=== PATIENT | male | born 1990 | race Caucasian/White ===

== ENCOUNTER → 2020-01-15 | Outpatient (REF) | payer OTHER | LOC: M LAB REF 16:27 | PROVIDERS: ATTEND Internal Medicine | DX: R68.82 Decreased libido (principal) ==

== ENCOUNTER 2020-09-14 18:22 | Emergency (ER) | payer OTHER ==
[~2020-09-14] VITALS: Ht 180.3 cm; Wt 104.7 kg
[2020-09-14] MEDS ORDERED: AMPH1CAP16 PO (18:30)
[2020-09-14] MEDS ORDERED: DULC5TAB PO (18:30)
[2020-09-14] MEDS ORDERED: PEPT262T2 PO (18:30)
[2020-09-14] MEDS ORDERED: METOCLOPRAMIDE INJ 10MG/2ML VIAL (J2765 PER 1) IV ONE (19:15)
[2020-09-14] MEDS ORDERED: NS 1,000 ML IV ONE (19:15)
[2020-09-14 20:06] LABS: BASO % 0.3 % (0.0-1.0); EOS # 0.2 10^3/uL (0.0-0.5); EOS % 1.8 % (0.0-3.0); HEMATOCRIT 45.1 % (42.0-52.0); HEMOGLOBIN 14.4 g/dl (13.5-17.5); LYMPH # 2.3 10^3/uL (1.5-5.0); LYMPH % 19.3 % (24.0-44.0); MEAN CORPUSCULAR HEMOGLOBIN 29.1 pg (27.0-33.0); MEAN CORPUSCULAR HGB CONC 31.9 g/dl (32.0-36.5); MEAN CORPUSCULAR VOLUME 91.3 fl (80.0-96.0); MONO # 1.1 10^3/uL (0.0-0.8); MONO % 9.1 % (0.0-5.0); NEUTROPHILS # 8.2 10^3/uL (1.5-8.5); NEUTROPHILS % 69.2 % (36.0-66.0); PLATELET COUNT, AUTOMATED 292 10^3/uL (150-450); RED BLOOD COUNT 4.94 10^6/uL (4.30-6.10); WHITE BLOOD COUNT 11.9 10^3/uL (4.0-10.0)
[2020-09-14 20:27] LABS: ALT/SGPT 30 U/L (12-78); BILIRUBIN,DIRECT 0.2 MG/DL (0.0-0.2); BILIRUBIN,TOTAL 1.1 MG/DL (0.2-1.0); CK-MB VALUE MASS < 1.0 NG/ML (<3.6); CPK CREATINE PHOSPHOKINASE 133 U/L (39-308); LIPASE 78 U/L (73-393); MB/CK RELATIVE INDEX 0.75 (< OR =4); TOTAL PROTEIN 7.5 GM/DL (6.4-8.2); TROPONIN I < 0.02 NG/ML (< 0.10)
[2020-09-14] MEDS ORDERED: ISOVUE-370 76% 100ML VIAL As Ordered ONE (20:35)
--- NOTE | 2020-09-14 21:36 | REPVR ---
PROCEDURE INFORMATION: Exam: CT Abdomen And Pelvis With Contrast Exam date and time: 09/14/2020 8:47 PM Age: 30 years old Clinical indication: Abdominal pain; Generalized; Additional info: Abdominal pain; R/O diverticulitis TECHNIQUE: Imaging protocol: Computed tomography of the abdomen and pelvis with intravenous contrast. Radiation optimization: All CT scans at this facility use at least one of these dose optimization techniques: automated exposure control; mA and/or kV adjustment per patient size (includes targeted exams where dose is matched to clinical indication); or iterative reconstruction. Contrast material: ISOVUE 370; Contrast volume: 100 ml; Contrast route: INTRAVENOUS (IV); COMPARISON: No relevant prior studies available. FINDINGS: Liver: Normal. No mass. Gallbladder and bile ducts: Normal. No calcified stones. No ductal dilation. Pancreas: Normal. No ductal dilation. Spleen: Normal. No splenomegaly. Adrenal glands: Normal. No mass. Kidneys and ureters: Normal. No hydronephrosis. Stomach and bowel: Sigmoid colonic wall thickening with pericolonic fat stranding. Appendix: No evidence of appendicitis. Intraperitoneal space: Unremarkable. No free air. No significant fluid collection. Vasculature: Unremarkable. No abdominal aortic aneurysm. Lymph nodes: Unremarkable. No enlarged lymph nodes. Urinary bladder: Unremarkable as visualized. Reproductive: Unremarkable as visualized. Bones/joints: Unremarkable. No acute fracture. Soft tissues: Unremarkable. Other findings: No fluid collections. IMPRESSION: Acute diverticulitis of the sigmoid colon. No fluid collections/abscess. Electronically signed by: Jf Phillips On 09/14/2020 21:36:17 PM
[2020-09-14] MEDS ORDERED: NORCO, ANEXSIA 5/325MG TABLET (HYDROcodone/ACETAMINOPHEN) PO ONE (21:45)
[2020-09-14] MEDS ORDERED: metroNIDAZOLE (FLAGYL) 500MG TABLET PO ONE (21:45)
[2020-09-14] MEDS ORDERED: ONDANSETRON 4 MG ORAL DISINTEGRATING TAB PO ONE (21:45)
[2020-09-14] MEDS ORDERED: CIPROFLOXACIN 500MG TABLET PO ONE (21:45)
[2020-09-14] MEDS ORDERED: CIPR-249 PO (21:46)
[2020-09-14] MEDS ORDERED: ONDA4TAB6 PO (21:46)
[2020-09-14] MEDS ORDERED: FLAG500T PO (21:46)
[2020-09-14] MEDS ORDERED: NORC1TAB7 PO (21:46)
[2020-09-14 22:00] VITALS: BP 115/56
--- NOTE | 2020-09-15 05:41 | ECGEPIP ---
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
== END 2020-09-14 22:25 | disposition home or self-care (01) ==
LOC: M ED 18:22
DX: K57.32 Diverticulitis of large intestine without perforation or abscess without bleeding (principal)
CPT/HCPCS: 74177; 80047; 80076; 81001; 82550; 82553; 83605; 83690; 84484; 85025; 93005; 93041; 96361; 96374; 99285; J2765; Q0162; Q9967

== ENCOUNTER → 2021-01-22 | Outpatient (REF) | payer OTHER ==
[~2021-01-22] MED LIST: AMPH1CAP16 PO; CIPR-249 PO; DULC5TAB PO; FLAG500T PO; NORC1TAB7 PO; ONDA4TAB6 PO; PEPT262T2 PO
== END ==
LOC: M LAB REF 13:58
PROVIDERS: ATTEND Nurse Practitioner Critical Care Medicine
DX: R19.7 Diarrhea, unspecified (principal)

== ENCOUNTER → 2021-06-18 | Outpatient (REF) | payer OTHER | LOC: M LAB REF 21:13 | PROVIDERS: ATTEND Physician Assistant | DX: R50.9 Fever, unspecified (principal) ==

== ENCOUNTER 2021-08-14 14:35 | Inpatient (IN) | payer OTHER ==
[~2021-08-14] VITALS: Ht 180.3 cm; Wt 106.3 kg
[2021-08-14] MEDS ORDERED: NS 1,000 ML IV SCH (14:45)
[2021-08-14] MEDS ORDERED: ONDANSETRON 4MG/2ML VIAL IV ONE (14:55)
[2021-08-14] MEDS ORDERED: MORPHINE 4 MG/ML 1ML VIAL/SYRINGE (J2270) IV PRN (14:55)
[2021-08-14] MEDS ORDERED: ISOVUE-370 76% 100ML VIAL As Ordered ONE (15:23)
[2021-08-14 15:24] LABS: BASO % 0.1 % (0.0-1.0); EOS % 0.1 % (0.0-3.0); HEMATOCRIT 39.9 % (42.0-52.0); HEMOGLOBIN 13.5 g/dl (13.5-17.5); LYMPH # 0.7 10^3/uL (1.5-5.0); LYMPH % 4.8 % (24.0-44.0); MEAN CORPUSCULAR HEMOGLOBIN 30.2 pg (27.0-33.0); MEAN CORPUSCULAR HGB CONC 33.8 g/dl (32.0-36.5); MEAN CORPUSCULAR VOLUME 89.3 fl (80.0-96.0); MONO # 0.8 10^3/uL (0.0-0.8); MONO % 5.1 % (2.0-8.0); NEUTROPHILS # 13.3 10^3/uL (1.5-8.5); NEUTROPHILS % 89.2 % (36.0-66.0); PLATELET COUNT, AUTOMATED 272 10^3/uL (150-450); RED BLOOD COUNT 4.47 10^6/uL (4.30-6.10); WHITE BLOOD COUNT 14.9 10^3/uL (4.0-10.0)
--- NOTE | 2021-08-14 15:43 | REP ---
INDICATION: abd pain. COMPARISON: None TECHNIQUE: Axial contrast-enhanced images from the lung bases to the pubic symphysis using 100 cc Isovue 370 intravenous contrast material. Coronal and sagittal reformations obtained. This CT examination was performed using the following dose reduction techniques: Automated exposure control, adjustment of mA and/or kv according to the patient's size, and the use of iterative reconstruction technique. FINDINGS: Mucosal thickening involving multiple loops of small and large bowel and primarily involving the sigmoid colon along with fat stranding and small amount of free fluid within the pelvis most suggestive of an acute enterocolitis/sigmoiditis. No bowel obstruction. No free air to suggest perforation. No drainable collection/abscess. Liver, spleen, pancreas, gallbladder, bilateral adrenal glands and kidneys are normal. Pelvis demonstrates relatively normal bladder and age-appropriate prostate/seminal vesicles. No significant intraperitoneal or retroperitoneal adenopathy. Abdominal aorta without aneurysm or dissection. Musculoskeletal structures without acute osseous abnormality lung bases are clear. IMPRESSION: Findings most compatible with enterocolitis/sigmoiditis <Electronically signed by Saad Torrez > 08/14/21 1158
[2021-08-14 15:48] LABS: CK-MB VALUE MASS < 1.0 NG/ML (<3.6); CPK CREATINE PHOSPHOKINASE 91 U/L (39-308); TROPONIN I < 0.02 NG/ML (< 0.10)
[2021-08-14 15:49] LABS: ALBUMIN 3.7 GM/DL (3.2-5.2); BILIRUBIN,DIRECT 0.4 MG/DL (0.0-0.2); BILIRUBIN,TOTAL 1.8 MG/DL (0.2-1.0); TOTAL PROTEIN 7.3 GM/DL (6.4-8.2)
[2021-08-14] MEDS ORDERED: PIPERACILLIN/TAZOBACTAM SOD 3.375 GM in D5W MINI-BAG PLUS 50 ML IV ONE (16:00)
[2021-08-14] MEDS ORDERED: SILD50TA PO (16:32)
[2021-08-14] MEDS ORDERED: HOME MED LIST COMPLETE! XX SCH (16:35)
[2021-08-14 16:36] LABS: RSV AMPLIFICATION NEGATIVE (NEGATIVE)
[2021-08-14] MEDS ORDERED: MOM 30ML SUSPENSION UDC PO PRN (17:20)
[2021-08-14] MEDS ORDERED: MAALOX 30 ML SUSP *UDC PO PRN (17:20)
--- NOTE | 2021-08-14 17:32 | HPEPDOC ---
[facility] Medical History & Physical Date of Admission Aug 14, 2021 Date of Service: Aug 14, 2021 Attending Physician: JOANNA SERNA MD History and Physical CHIEF COMPLAINT: Abdominal pain HISTORY OF PRESENT ILLNESS: Patient is a 31-year-old male with a history of sudden onset abdominal pain beginning 9:51 AM 08/13/2021. Patient said it started with cramps and sharp pain. It progressed from there and became flares of constant sharp pain. He was only able to sleep a few hours overnight by sleeping on the right side. Eventually the pain got so bad that it did not matter what side he laid on. This morning he said the pain was worse and the severe cramping still continued. He states the pain is worse with movement, coughing, straining, twisting motions. He has tried milk of magnesia and colonoscopy bowel prep in an attempt to relieve what he thought may be a possible obstruction. He does have a history of diverticulosis and has had similar pain before. Of note he had his wisdom teeth removed this Wednesday and was prescribed antibiotics and most likely hydrocodone for pain control. The last time he ate (scallops, torri, rare meat) was before his wisdom teeth surgery PAST MEDICAL HISTORY: 1. Diverticulitis in September 2020 2. Asthma 3. ADD PAST SURGICAL HISTORY: 1. [place] teeth removed 08/13/2021. 2. She repaired dislocated kneecap in 2003. SOCIAL HISTORY: Marital status: Engaged. 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 Hereditary Diseases: Unknown ALLERGIES: Please see below. REVIEW OF SYSTEMS: CONSTITUTIONAL: Reports fever chills, diaphoresis. Cardiac: Denies chest pain, tachycardia Respiratory: Denies shortness of breath, coughing GASTROINTESTINAL: Reports nausea, watery diarrhea (15-20 episodes yesterday, 4-5 today), denies hematochezia, denies vomiting. GENITOURINARY: Some difficulty urinating (thinks he is dehydrated), some hematuria (allegedly); denies dysuria, pyuria. HOME MEDICATIONS: Please see below. PHYSICAL EXAMINATION: VITAL SIGNS: See below GENERAL APPEARANCE: 31-year-old male, sitting in stretcher, in mild to moderate distress due to abdominal pain. HEENT: Head normocephalic/atraumatic. CARDIOVASCULAR: Regular rate and rhythm, no murmurs, rubs, or gallops. LUNGS: Clear to auscultation bilaterally, no wheezes, crackles, rhonchi. ABDOMEN: Normoactive bowel sounds; tender to palpation throughout, especially in right upper and left lower quadrants, guarding throughout with minimal palpat ion; negative Rovsing sign. EXTREMITIES: 2+ radial and 2+ dorsalis pedis pulses. LABORATORY DATA: See below. IMAGING: FINDINGS: Mucosal thickening involving multiple loops of small and large bowel and primarily involving the sigmoid colon along with fat stranding and small amount of free fluid within the pelvis most suggestive of an acute enterocolitis/sigmoiditis. No bowel obstruction. No free air to suggest perforation. No drainable collection/abscess. Liver, spleen, pancreas, gallbladder, bilateral adrenal glands and kidneys are normal. Pelvis demonstrates relatively normal bladder and age-appropriate prostate/seminal vesicles. No significant intraperitoneal or retroperitoneal adenopathy. Abdominal aorta without aneurysm or dissection. Musculoskeletal structures without acute osseous abnormality lung bases are clear. IMPRESSION: Findings most compatible with enterocolitis/sigmoiditis MICROBIOLOGY: Please see below. ASSESSMENT: Patient is a 31-year-old male, in mild to moderate stress due to abdominal pain likely from diverticulitis. Patient had a flare of diverticulitis last September. He presented to the ED today after severe sharp and stabbing abdominal pain that began yesterday. PLAN: 1. Abdominal pain - likely 2/2 Diverticulitis / Sigmoiditis - Clinically reports abdominal pain - Remains hemodynamically stable - Will start Antibiotics Zosyn 3.375 mg for intra-abdominal coverage -Pain control: Tylenol 650 mg every 4 hours for mild to moderate pain; morphine 2 mg every 4 hours for moderate pain; -Ondansetron for nausea -Fluids: Normal saline 120 mls/hr - Will check lactic acid / blood cultures - Clear liquid diet only at this time Reported hematuria - Will check UA 2. Asthma - No evidence of exacerbation -Uses an albuterol inhaler for rescue but has not used it in some time -Continue with home inhalers 3. ADHD -Adderall 20 mg, has not taken it since the weekend - Will hold for now 4. DVT prophylaxis -Teds and sequentials CODE STATUS: Full code Vital Signs Vital Signs Date Time Temp Pulse Resp B/P (MAP) Pulse Ox O2 Delivery O2 Flow Rate FiO2 08/14/21 16:05 92 99 08/14/21 16:00 18 131/61 (84) Room Air 08/14/21 14:35 98.7 Laboratory Data Labs 24H Laboratory Tests 2 08/14/21 14:44: Immature Granulocyte % (Auto) 0.7, Neutrophils (%) (Auto) 89.2H, Lymphocytes (%) (Auto) 4.8L, Monocytes (%) (Auto) 5.1, Eosinophils (%) (Auto) 0.1, Basophils (%) (Auto) 0.1, Neutrophils # (Auto) 13.3H, Lymphocytes # (Auto) 0.7L, Monocytes # (Auto) 0.8, Eosinophils # (Auto) 0.0, Basophils # (Auto) 0.0, Nucleated Red Blood Cells % (auto) 0.0 08/14/21 15:01: POC Glucose (Misc Panel) 114H, POC Sodium (Misc Panel) 135L, POC Potassium (Misc Panel) 3.7, POC Chloride (Misc Panel) 98, POC Total CO2 (Misc Panel) 26.0, POC Blood Urea Nitrogen (Misc Panel 10, POC Ionized Calcium (Misc Panel) 4.9, POC Creatinine (Misc Panel) 1.1, POC Hematocrit (Misc Panel) 41.0 08/14/21 15:02: Total Creatine Kinase 91, Creatine Kinase MB < 1.0, Creatine Kinase MB Relative Index 1.10, Troponin I < 0.02 08/14/21 15:09: Total Bilirubin 1.8H, Direct Bilirubin 0.4H, Aspartate Amino Transf (AST/SGOT) 19, Alanine Aminotransferase (ALT/SGPT) 44, Alkaline Phosphatase 55, Total Protein 7.3, Albumin 3.7, Albumin/Globulin Ratio 1.0, Lipase 48L, Coronavirus (COVID-19)(PCR) NEGATIVE, Influenza Type A (RT-PCR) NEGATIVE, Influenza Type B (RT-PCR) NEGATIVE, Respiratory Syncytial Virus (PCR) NEGATIVE CBC/BMP Laboratory Tests 08/14/21 14:44 Home Medications Scheduled Dextroamphetamine/Amphetamine (Dextroamp-Amphet ER 20 mg Cap) 20 Mg Cap.er.24h, 20 MG PO BID TAKES MORNING AND AFTERNOON, SOMETIMES ONLY ONCE IN THE MORNING PER PT Scheduled PRN Sildenafil Citrate (Viagra) 50 Mg Tablet, 50 MG PO ASDIRECTED PRN for ERECTILE DYSFUNCTION 1 hour before sexual activity Allergies Coded Allergies: No Known Allergies (Unverified , 09/14/20) A-FIB/CHADSVASC A-FIB History Current/History of A-Fib/PAF?: No GME ATTESTATION GME ATTESTATION My faculty preceptor for this patient encounter was physically present during the encounter and was fully available. All aspects of the patient interview, examination, medical decision making process, and medical care plan development were reviewed and approved by the faculty preceptor. The faculty preceptor is aware and concurs with the plan as stated in the body of this note and will attest to such by his/her cosignature. ATTENDING NOTE I, Joanna Serna, have independently examined this patient and performed my own physical exam, as well as reviewed the documentation and edited where necessary with the resident. For medical students we have performed the physical exam together and discussed medical decision making and I have verified the history. I have discussed in detail with the resident / student the findings and plan of treatment as documented by the resident / student and edited their note. I agree with their findings and treatment plan and have edited their documentation. I will continue to follow the patient during this hospital stay. Tramaine Patel DO Aug 14, 2021 17:32 JOANNA SERNA MD Aug 15, 2021 14:41
[2021-08-14] MEDS: NS 1,000 ML IV SCH ×2 (17:40→21:45)
[2021-08-14] MEDS: MORPHINE 2 MG/ML 1ML VIAL (J2270) IV PRN ×2 (18:07→23:12)
[2021-08-14] MEDS: ONDANSETRON 4MG/2ML VIAL IV PRN (18:08)
[2021-08-14] MEDS ORDERED: KETOROLAC 30 MG/ML 1ML VIAL IV ONE (18:50)
--- NOTE | 2021-08-14 19:51 | ECGEPIP ---
[facility] - ED Test Date: 2021-08-14 Pat Name: MIGUEL SNEED Department: Room: - Gender: Male Time Study Clerk: : 1990 Requested By: Susan Chávez Order Number: [id number] Reading MD: Alexsander Troy Measurements Intervals [place] Rate: 85 P: 63 UT: 162 QRS: 62 QRSD: 108 T: 37 QT: 340 QTc: 404 Interpretive Statements Normal sinus rhythm MODERATE INTRAVENTRICULAR CONDUCTION DELAY Nonspecific T wave abnormality SIMILAR TO 09/14/20 Electronically Signed on 08-14-2021 19:51:44 EDT by Alexsander Troy
[2021-08-14] MEDS ORDERED: DOCUSATE SODIUM 100MG CAPSULE PO SCH (21:00)
[2021-08-14 22:00] VITALS: BP 133/71
[2021-08-14] MEDS: PIPERACILLIN/TAZOBACTAM SOD 3.375 GM in D5W MINI-BAG PLUS 50 ML IV SCH (23:11)
[2021-08-15] VITALS (9 sets, daily range): BP systolic 100–129; BP diastolic 55–70
[2021-08-15] MEDS: ACETAMINOPHEN TAB 650MG DOSE (2X325MG) PO PRN ×2 (02:41→10:58)
[2021-08-15] MEDS: MORPHINE 2 MG/ML 1ML VIAL (J2270) IV PRN ×2 (03:16→08:36)
[2021-08-15] MEDS ORDERED: MORPHINE 2 MG/ML 1ML VIAL (J2270) IV ONE (03:35)
[2021-08-15] MEDS: PIPERACILLIN/TAZOBACTAM SOD 3.375 GM in D5W MINI-BAG PLUS 50 ML IV SCH ×3 (04:46→20:50)
[2021-08-15] MEDS ORDERED: PREPARATION H OINTMENT (HEMORRHOID) PR PRN (05:40)
[2021-08-15] MEDS ORDERED: KETOROLAC 30 MG/ML 1ML VIAL IV ONE (05:40)
[2021-08-15 07:13] LABS: BASO % 0.1 % (0.0-1.0); EOS % 0.4 % (0.0-3.0); HEMATOCRIT 35.8 % (42.0-52.0); LYMPH # 1.3 10^3/uL (1.5-5.0); LYMPH % 11.5 % (24.0-44.0); MEAN CORPUSCULAR HEMOGLOBIN 30.5 pg (27.0-33.0); MEAN CORPUSCULAR HGB CONC 33.5 g/dl (32.0-36.5); MEAN CORPUSCULAR VOLUME 91.1 fl (80.0-96.0); MONO # 0.8 10^3/uL (0.0-0.8); MONO % 7.4 % (2.0-8.0); PLATELET COUNT, AUTOMATED 235 10^3/uL (150-450); RED BLOOD COUNT 3.93 10^6/uL (4.30-6.10); WHITE BLOOD COUNT 11.3 10^3/uL (4.0-10.0)
[2021-08-15 08:02] LABS: ALBUMIN 2.8 GM/DL (3.2-5.2); ALT/SGPT 33 U/L (12-78); BILIRUBIN,TOTAL 1.6 MG/DL (0.2-1.0); BLOOD UREA NITROGEN 12 MG/DL (7-18); CALCIUM LEVEL 8.6 MG/DL (8.5-10.1); CARBON DIOXIDE LEVEL 27 MEQ/L (21-32); CHLORIDE LEVEL 104 MEQ/L (98-107); CREATININE FOR GFR 1.23 MG/DL (0.70-1.30); GLOMERULAR FILTRATION RATE > 60.0 (>60); GLUCOSE, FASTING 98 MG/DL (70-100); MAGNESIUM LEVEL 2.1 MG/DL (1.8-2.4); POTASSIUM SERUM 3.8 MEQ/L (3.5-5.1); SODIUM LEVEL 135 MEQ/L (136-145); TOTAL PROTEIN 6.2 GM/DL (6.4-8.2)
[2021-08-15] MEDS: NS 1,000 ML IV SCH ×3 (10:58→23:36)
[2021-08-15] MEDS ORDERED: MORPHINE 4 MG/ML 1ML VIAL/SYRINGE (J2270) IV PRN ×2 (11:00→18:05)
[2021-08-15] MEDS ORDERED: NS 1,000 ML IV ONE (11:20)
--- NOTE | 2021-08-15 11:44 | REP ---
INDICATION: Abdominal pain COMPARISON: 08/14/2021 TECHNIQUE: Axial noncontrast images from the lung bases to the pubic symphysis with coronal and sagittal reformations. This CT examination was performed using the following dose reduction techniques: Automated exposure control, adjustment of mA and/or kv according to the patient's size, and use of iterative reconstruction technique. FINDINGS: Comparison is made with most recent prior examination which demonstrated enterocolitis and suspected sigmoiditis. The current examination now demonstrates contained free air within the deep pelvis adjacent to the mid sigmoid colon with small amounts of associated fluid collections most compatible with acute ruptured sigmoiditis. The small gas/fluid collections within the deep pelvis measure approximately 2.1 and 3.9 cm maximal diameter each (series 201; images 121-138) and may not be amenable to interventional drainage. There is no evidence for associated bowel obstruction and no further free air identified. Liver, spleen, pancreas, gallbladder, bilateral adrenal glands and kidneys are normal for noncontrast evaluation. Further evaluation of the pelvis demonstrates normal bladder and prostate/seminal vesicles. Abdominal aorta without aneurysm. Musculoskeletal structures intact. Lung bases demonstrate mild atelectasis. IMPRESSION: 1. Previously identified enterocolitis/sigmoiditis now demonstrates contained perforation in the pelvis adjacent to the mid sigmoid colon with small foci of gas/fluid. No evidence for bowel obstruction and no further free air within the peritoneal cavity is identified. <Electronically signed by Saad Torrez > 08/15/21 0864
[2021-08-15] MEDS: ONDANSETRON 4MG/2ML VIAL IV PRN (12:57)
[2021-08-15] MEDS ORDERED: ROCURONIUM BROMIDE 50 MG/5 ML VIAL As Ordered ONE ×3 (13:12→15:51)
[2021-08-15] MEDS ORDERED: fentaNYL 100 MCG/2 ML INJECTION (J3010) As Ordered ONE (13:13)
[2021-08-15] MEDS ORDERED: LIDOCAINE 2% INJ 100 MG/5 ML SYRINGE As Ordered ONE (13:13)
[2021-08-15] MEDS ORDERED: propofoL 200 MG/20 ML VIAL As Ordered ONE (13:13)
[2021-08-15] MEDS ORDERED: SUCCINYLCHOLINE 100 MG/5 ML SYRINGE (J0330) As Ordered ONE (13:13)
[2021-08-15] MEDS ORDERED: MIDAZOLAM INJ 2MG/2ML VIAL (J2250 PER 1MG) As Ordered ONE (13:13)
--- NOTE | 2021-08-15 13:32 | CR.PDOC ---
General Surgery Consultation Date of Consultation 08/15/21 History and Physical CONSULT REPORT FOR: Hospitalist service (Dr. Garcia) REASON FOR CONSULTATION: Perforated diverticulitis HISTORY OF PRESENT ILLNESS: I was asked to emergently see Mr. Hardin who is a 31-year-old gentleman admitted yesterday after presenting to the emergency room with a few hours history of sudden onset of lower abdominal pain that he reports as crampy they are becoming sharp starting over the left lower abdomen radiating to the mid suprapubic and right lower quadrant area also he is reporting rectal pressure discomfort. He did have a few loose stools nonbloody stools yesterday. He continues to report intermittent flatus. In the emergency room he was evaluated and noted to may have enterocolitis, sigmoiditis. There were no free perforation or collections on that CT study. He had a white cell count of 14.9. He was admitted to the hospital service started on IV Zosyn. He initially somewhat stabilized overnight but early this morning felt worse, was reporting more pain and discomfort and was noted to be febrile at 101.5. He was being suspected to be septic from this. A repeat CT abdomen pelvis was done showing what looks like a contained perforation at the level of the sigmoid colon with an air-fluid level collection on the left lateral pelvic sidewall that the radiologist feels is not amenable to percutaneous drainage. Thus I was asked to evaluate the patient for potential surgery. He tells me that he had one episode of diverticulitis back in September 2020. He was treated with antibiotics with improvement and resolution of his symptoms. [facility] [place] he had a colonoscopy done January 2021 and was told. That the diverticulosis was not too bad and was advised high fiber diet. He was doing well up until this episode. Patient denies any significant personal or family history for inflammatory bowel disease, colorectal malignancy. Reports normally regular soft formed stools about 2 or 3 times in the morning after coffee. He just had his wisdom tooth taken out last Wednesday and for which she was taking some narcotics which caused him to be constipated. PAST MEDICAL HISTORY: 1. Diverticulitis in September 2020 2. Asthma 3. ADD PAST SURGICAL HISTORY: 1. [place] teeth removed 08/13/2021. 2. She repaired dislocated kneecap in 2003. SOCIAL HISTORY: Marital status: Engaged. 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 Hereditary Diseases: Unknown PREVIOUS ANESTHESIA REACTIONS: He has had a previous general anesthesia for repair of his dislocated kneecap without any untoward reaction. ALLERGIES: Please see below. HOME MEDICATIONS: Please see below. REVIEW OF SYSTEMS: Patient reports he was in his usual state of health prior to the start of his symptoms yesterday morning. Denies any unexplained weight loss. He has been having cold sweats, fever overnight. Denies cough or colds. Denies travel or exposure to any sick persons. Denies any chest pain, shortness of breath limiting his activity. Denies any chronic abdominal pains. Denies any dysuria hematuria nocturia. He reports some pressure like discomfort in his rectum. Otherwise he has been healthy and lives an active lifestyle. PHYSICAL EXAMINATION: Patient is laying flat in bed appears moderately uncomfortable him in the room. Skin is cool and moist, mild diaphoresis. Overall looks to be baseline healthy consistent with his chronologic age. Lips appear moist and not terribly dehydrated. No obvious jugular venous distention. Lung sounds are clear to auscultation bilaterally anteriorly with no wheezing. Pulse rate is in the 80s and regular. Heart rate and rhythm are regular. Abdomen is relatively flat does not look to be terribly distended. No obvious signs of umbilical or groin herniation. No prior surgical scars. Minimally uncomfortable on palpation on the upper abdomen. Moderately tender over the lower abdomen including the left lower abdomen, suprapubic area and right lower abdomen. Most tender over the suprapubic and left lower abdominal area with moderate guarding on palpation. No obvious extremity defects, deformities. No extremity edema. ANCILLARIES: WBC on admission is 14.9. Repeat this morning is 11.3. CRP yesterday is 21 point 4 repeat today is 21.5. Initial albumin at 3.7. LABORATORY DATA: Please see below. IMAGING STUDIES: He had a CT abdomen pelvis with IV contrast done yesterday on presentation to the emergency department. He had a repeat noncontrast CT abdomen and pelvis done earlier today. I reviewed both images as well as the prior images on a CT scan abdomen pelvis done September 2020 on his initial presentation for diverticulitis. He had interval development of a contained perforation at the level of the sigmoid colon with an air-fluid level/gas/fluid collection deep in the pelvis at the lateral wall. Radiologist measured this is 2.9 by 3.9 cm and does not think it is amenable to interventional drainage. Thickened sigmoid colon as well as nearby small bowel. No other signs of free perforation. No other signs of abscess. No signs of bowel obstruction. IMPRESSION AND PLAN: Perforated sigmoid diverticulitis Patient looks to have an evolving process which started yesterday morning and now has proceeded to a contained perforation of the sigmoid colon despite being started on IV antibiotics on his presentation. He looks moderately uncomfortable. He is exhibiting signs and symptoms of sepsis, localized peritonitis on examination mostly in the lower abdomen. I advised him of the results of the CT. Ideally would try to get percutaneous drainage but the radi ologist does not think that the collection is amenable to drainage. Advised him of the need to go to the operating room. I suggest we start with diagnostic laparoscopy and if we can locate and drain the abscess we will do so. If there is no gross signs of necrosis or large defects on the sigmoid colon, we will stop with the drainage and washout and observe him for improvement and resolution of the sepsis. This is mostly successful about 60 to 70% of the time. If he has a large defect on his colon, fecal peritonitis, I advised him that he will need resection and most likely a temporary colostomy to get him through this episode and would need subsequent reversal of the colostomy once he has recovered from this usually in the space of about 3 to 6 months. He has had a prior colonoscopy this year for evaluation of a previous episode of diverticulitis back in September 2020 so most likely were not dealing with malignancy. I answered all his questions and he is consented to proceed. We will make arrangements to get him to the operating room urgently. Vital Signs Vital Signs Date Time Temp Pulse Resp B/P (MAP) Pulse Ox O2 Delivery O2 Flow Rate FiO2 08/15/21 12:43 100.0 89 17 109/62 (78) 95 Room Air I&Os I&O- Last 24 Hours up to 6 AM 08/15/21 05:59 Intake Total 1090 ml Output Total 450 ml Balance 640 ml Laboratory Data Labs 24H Laboratory Tests 2 08/14/21 14:44: Immature Granulocyte % (Auto) 0.7, Neutrophils (%) (Auto) 89.2H, Lymphocytes (%) (Auto) 4.8L, Monocytes (%) (Auto) 5.1, Eosinophils (%) (Auto) 0.1, Basophils (%) (Auto) 0.1, Neutrophils # (Auto) 13.3H, Lymphocytes # (Auto) 0.7L, Monocytes # (Auto) 0.8, Eosinophils # (Auto) 0.0, Basophils # (Auto) 0.0, Nucleated Red Blood Cells % (auto) 0.0 08/14/21 15:01: POC Glucose (Misc Panel) 114H, POC Sodium (Misc Panel) 135L, POC Potassium (Misc Panel) 3.7, POC Chloride (Misc Panel) 98, POC Total CO2 (Misc Panel) 26.0, POC Blood Urea Nitrogen (Misc Panel 10, POC Ionized Calcium (Misc Panel) 4.9, POC Creatinine (Misc Panel) 1.1, POC Hematocrit (Misc Panel) 41.0 08/14/21 15:02: Total Creatine Kinase 91, Creatine Kinase MB < 1.0, Creatine Kinase MB Relative Index 1.10, Troponin I < 0.02 08/14/21 15:09: Total Bilirubin 1.8H, Direct Bilirubin 0.4H, Aspartate Amino Transf (AST/SGOT) 19, Alanine Aminotransferase (ALT/SGPT) 44, Alkaline Phosphatase 55, Total Protein 7.3, Albumin 3.7, Albumin/Globulin Ratio 1.0, Lipase 48L, Coronavirus (COVID-19)(PCR) NEGATIVE, Influenza Type A (RT-PCR) NEGATIVE, Influenza Type B (RT-PCR) NEGATIVE, Respiratory Syncytial Virus (PCR) NEGATIVE 08/14/21 15:57: Lactic Acid Level 1.0 08/14/21 17:04: C-Reactive Protein, Quantitative 21.40H 08/15/21 06:59: C-Reactive Protein, Quantitative 21.50H, Immature Granulocyte % (Auto) 0.6, Neutrophils (%) (Auto) 80.0H, Lymphocytes (%) (Auto) 11.5L, Monocytes (%) (Auto) 7.4, Eosinophils (%) (Auto) 0.4, Basophils (%) (Auto) 0.1, Neutrophils # (Auto) 9.0H, Lymphocytes # (Auto) 1.3L, Monocytes # (Auto) 0.8, Eosinophils # (Auto) 0.0, Basophils # (Auto) 0.0, Nucleated Red Blood Cells % (auto) 0.0, Anion Gap 4L, Glomerular Filtration Rate > 60.0, Calcium Level 8.6, Magnesium Level 2.1, Total Bilirubin 1.6H, Aspartate Amino Transf (AST/SGOT) 16, Alanine Aminotransferase (ALT/SGPT) 33, Alkaline Phosphatase 50, Total Protein 6.2L, Albumin 2.8#L, Albumin/Globulin Ratio 0.8 08/15/21 12:12: Lactic Acid Level 1.2 CBC/BMP Laboratory Tests 08/14/21 14:44 08/15/21 06:59 Microbiology Microbiology 08/15/21 Blood Culture, Received Pending 08/15/21 Blood Culture, Received Pending 08/14/21 Blood Culture, Received Pending 08/14/21 Blood Culture, Received Pending Home Medications Scheduled Dextroamphetamine/Amphetamine (Dextroamp-Amphet ER 20 mg Cap) 20 Mg Cap.er.24h, 20 MG PO BID, (Reported) TAKES MORNING AND AFTERNOON, SOMETIMES ONLY ONCE IN THE MORNING PER PT Scheduled PRN Sildenafil Citrate (Viagra) 50 Mg Tablet, 50 MG PO ASDIRECTED PRN for ERECTILE DYSFUNCTION, (Reported) 1 hour before sexual activity Allergies Coded Allergies: No Known Allergies (Unverified , 09/14/20) ESDRAS LEMA MD Aug 15, 2021 13:32
--- NOTE | 2021-08-15 13:32 | IPNPDOC ---
Date Seen The patient was seen on 08/15/21. Progress Note SUBJECTIVE: Patient is a 31-year-old male with history of diverticulitis who was admitted to the hospital service yesterday after experiencing severe abdominal pain that began 08/13/2021. Upon examining the patient in the room it was determined that patient needed a stat CT abdomen pelvis due to physical exam findings and presentation is concerning for peritonitis or perforation of bowel. Review of systems: Constitutional: Denies fever; reports chills and night sweats Cardiac: Denies chest pain, tachycardia Respiratory: Denies coughing; reports shortness of breath Respiratory: Denies vomiting, diarrhea; reports nausea and severe abdominal pain worsened yesterday Neurology: Denies headache, dizziness OBJECTIVE PHYSICAL EXAMINATION: VITAL SIGNS: Please see below. GENERAL: 31-year-old male, in severe distress, shivering in bed HEENT: Head normocephalic atraumatic, teeth chattering chills CARDIOVASCULAR: Difficult to assess due to patient chills and shivering. RESPIRATORY: Hyperventilating due to pain. ABDOMINAL: Pain out of proportion to touch Rectal temperature of 101.5 LABORATORY DATA, IMAGING STUDIES, MICROBIOLOGY: Please see below. Imaging: CT abdomen pelvis 08/14/2021 Findings most compatible with enterocolitis/sigmoiditis CT abdomen pelvis 08/15/2021: 1. Previously identified enterocolitis/sigmoiditis now demonstrates contained perforation in the pelvis adjacent to the mid sigmoid colon with small foci of gas/fluid. No evidence for bowel obstruction and no further free air within the peritoneal cavity is identified. ASSESSMENT AND PLAN: This is a 31-year-old male with history of diverticulitis who presented for severe 08/13/2021. Exam and CT findings indicate contained perforation adjacent to the mid sigmoid colon. PROBLEMS: 1. Abdominal pain - likely 2/2 Diverticulitis / Sigmoiditis; now complicated with contained perforation - Is reported worsening abdominal pain this morning - Remains hemodynamically stable; however, had spiked a fever - Leukocytosis improving - No lactic acidosis - Imaging noted above - Will provide fluid boluses now and increase rate of IV fluids - c/w Zosyn 3.375 mg for intra-abdominal coverage (Day #2) - c/w Pain control with Morphine and Antiemetics with Zofran - Will change to NPO status - General surgery has been called for emergent evaluation for likely surgical intervention - Patient has been transferred to PCU given new findings on imaging suggesting perforation Reported hematuria - Will check UA; pending 2. Asthma -No evidence of exacerbation -Uses an albuterol inhaler for rescue but has not used it in some time -Continue with home inhalers 3. ADHD -Adderall 20 mg, has not taken it since the weekend 4. DVT prophylaxis -Teds and sequentials CODE STATUS: Full code DISPOSITION: Pending clinical improvement. VS, I&O, 24H, Fishbone Vital Signs/I&O Vital Signs Date Time Temp Pulse Resp B/P (MAP) Pulse Ox O2 Delivery O2 Flow Rate FiO2 08/15/21 12:43 100.0 89 17 109/62 (78) 95 Room Air I&O- Last 24 Hours up to 6 AM 08/15/21 05:59 Intake Total 1090 ml Output Total 450 ml Balance 640 ml Laboratory Data 24H LABS Laboratory Tests 2 08/14/21 14:44: Immature Granulocyte % (Auto) 0.7, Neutrophils (%) (Auto) 89.2H, Lymphocytes (%) (Auto) 4.8L, Monocytes (%) (Auto) 5.1, Eosinophils (%) (Auto) 0.1, Basophils (%) (Auto) 0.1, Neutrophils # (Auto) 13.3H, Lymphocytes # (Auto) 0.7L, Monocytes # (Auto) 0.8, Eosinophils # (Auto) 0.0, Basophils # (Auto) 0.0, Nucleated Red Blood Cells % (auto) 0.0 08/14/21 15:01: POC Glucose (Misc Panel) 114H, POC Sodium (Misc Panel) 135L, POC Potassium (Misc Panel) 3.7, POC Chloride (Misc Panel) 98, POC Total CO2 (Misc Panel) 26.0, POC Blood Urea Nitrogen (Misc Panel 10, POC Ionized Calcium (Misc Panel) 4.9, POC Creatinine (Misc Panel) 1.1, POC Hematocrit (Misc Panel) 41.0 08/14/21 15:02: Total Creatine Kinase 91, Creatine Kinase MB < 1.0, Creatine Kinase MB Relative Index 1.10, Troponin I < 0.02 08/14/21 15:09: Total Bilirubin 1.8H, Direct Bilirubin 0.4H, Aspartate Amino Transf (AST/SGOT) 19, Alanine Aminotransferase (ALT/SGPT) 44, Alkaline Phosphatase 55, Total Protein 7.3, Albumin 3.7, Albumin/Globulin Ratio 1.0, Lipase 48L, Coronavirus (COVID-19)(PCR) NEGATIVE, Influenza Type A (RT-PCR) NEGATIVE, Influenza Type B (RT-PCR) NEGATIVE, Respiratory Syncytial Virus (PCR) NEGATIVE 08/14/21 15:57: Lactic Acid Level 1.0 08/14/21 17:04: C-Reactive Protein, Quantitative 21.40H 08/15/21 06:59: C-Reactive Protein, Quantitative 21.50H, Immature Granulocyte % (Auto) 0.6, Neutrophils (%) (Auto) 80.0H, Lymphocytes (%) (Auto) 11.5L, Monocytes (%) (Auto) 7.4, Eosinophils (%) (Auto) 0.4, Basophils (%) (Auto) 0.1, Neutrophils # (Auto) 9.0H, Lymphocytes # (Auto) 1.3L, Monocytes # (Auto) 0.8, Eosinophils # (Auto) 0.0, Basophils # (Auto) 0.0, Nucleated Red Blood Cells % (auto) 0.0, Anion Gap 4L, Glomerular Filtration Rate > 60.0, Calcium Level 8.6, Magnesium Level 2.1, Total Bilirubin 1.6H, Aspartate Amino Transf (AST/SGOT) 16, Alanine Aminotransferase (ALT/SGPT) 33, Alkaline Phosphatase 50, Total Protein 6.2L, Al bumin 2.8#L, Albumin/Globulin Ratio 0.8 08/15/21 12:12: Lactic Acid Level 1.2 CBC/BMP Laboratory Tests 08/14/21 14:44 08/15/21 06:59 Microbiology Microbiology 08/15/21 Blood Culture, Received Pending 08/15/21 Blood Culture, Received Pending 08/14/21 Blood Culture, Received Pending 08/14/21 Blood Culture, Received Pending GME ATTESTATION GME ATTESTATION My faculty preceptor for this patient encounter was physically present during the encounter and was fully available. All aspects of the patient interview, examination, medical decision making process, and medical care plan development were reviewed and approved by the faculty preceptor. The faculty preceptor is aware and concurs with the plan as stated in the body of this note and will attest to such by his/her cosignature. ATTENDING NOTE I, Joanna Serna, have independently examined this patient and performed my own physical exam, as well as reviewed the documentation and edited where necessary with the resident. For medical students we have performed the physical exam together and discussed medical decision making and I have verified the history. I have discussed in detail with the resident / student the findings and plan of treatment as documented by the resident / student and edited their note. I agree with their findings and treatment plan and have edited their documentation. I will continue to follow the patient during this hospital stay. Tramaine Patel DO Aug 15, 2021 13:32 JOANNA SERNA MD Aug 15, 2021 14:47
[2021-08-15] MEDS ORDERED: BUPIVACAINE HCL 0.25% 30ML VIAL As Ordered ONE (14:02)
[2021-08-15] MEDS ORDERED: LIDOCAINE 1% SDV 30ML VIAL As Ordered ONE (14:02)
[2021-08-15] MEDS ORDERED: KETOROLAC 60MG 2ML VIAL As Ordered ONE (14:15)
[2021-08-15] MEDS ORDERED: ONDANSETRON 4MG/2ML VIAL As Ordered ONE (14:15)
[2021-08-15] MEDS ORDERED: dexameTHASONE 4 MG/ML 1ML VIAL (J1100 PER 1MG) As Ordered ONE (14:15)
[2021-08-15] MEDS ORDERED: HYDROmorphone HCL 2 MG/ML 1ML VIAL As Ordered ONE ×2 (14:15→18:19)
[2021-08-15] MEDS ORDERED: PHENYLephrine 500MCG 5ML (100MCG/ML) SYRINGE As Ordered ONE (14:19)
[2021-08-15] MEDS ORDERED: ACETAMINOPHEN 1000MG 100ML IV BTL (OFIRMEV) (J0131 PER 10MG) As Ordered ONE (14:21)
[2021-08-15] MEDS ORDERED: ePHEDrine SULFATE 25 MG/5 ML(5MG/ML) SYRINGE As Ordered ONE (14:27)
[2021-08-15] MEDS ORDERED: SUGAMMADEX SODIUM 500 MG/5 ML VIAL (BRIDION) As Ordered ONE (14:38)
[2021-08-15] MEDS ORDERED: ZOSYN 3.375GM VIAL (J2543) As Ordered ONE (16:26)
[2021-08-15] MEDS ORDERED: PERCOCET 5MG/325MG TAB PO PRN (18:00)
[2021-08-15] MEDS: HYDROMORPHONE HCL 0.5 MG/ 0.5 ML SYRINGE (J1170 PER 1) IV PRN ×4 (18:11→18:41)
--- NOTE | 2021-08-15 18:12 | ROOPDOC ---
[facility] Report Of Operation Report of Operation DATE OF PROCEDURE: 08/15/21 PREPROCEDURE DIAGNOSES: Perforated diverticulitis. POSTPROCEDURE DIAGNOSES: Perforated diverticulitis. PROCEDURE PERFORMED: Laparoscopic sigmoid colectomy with end to and procto-colic anastomosis (EEA 29), release of splenic flexure. SURGEON: Rex Samaniego MD [employer]SEM[employer]Y SUPERVISOR: Itezl Diaz NP assisted me throughout the case with placement of ports, manipulation of the camera, retraction of bowel, extraction of the specimen and performance of the procto-colic anastomosis ANESTHESIA: General endotracheal anesthesia. ESTIMATED BLOOD LOSS: Approximately 50 mL. COMPLICATIONS: None. REMARKS: Healthy 31-year-old male admitted with sudden onset of lower abdominal pain on 08/14/2021, initially with a CT finding of nonspecific enteritis, sigmoid colitis and was started on IV antibiotics. His symptoms worsened this morning and the repeat CT was done showing possible contained perforation, abscess that was not drainable percutaneously. He was also showing signs of sepsis and peritonitis on the lower abdomen. FINDINGS: Free perforation at the lower sigmoid with reactive, murky fluid throughout the abdomen. No gross fecal material extruded. The sigmoid colon is thickened but the descending colon appears healthy. The distal colon appears pliable and healthy. He was hemodynamically stable throughout the procedure the estimated physician to perform anastomosis SPECIMENS REMOVED: Sigmoid colon DESCRIPTION OF PROCEDURE: . Patient been admitted over the night and has been receiving Zosyn 3.375 g IV every 6 hours. Despite this his condition worsened. He is brought to the operating room, placed supine on the procedure table. Monitoring leads placed. Bilateral sequential compression device placed for DVT prophylaxis. General endotracheal anesthesia established. Patient remained hemodynamically stable with abduction. Onofre catheter is in place for urine output monitoring. Urine looks very concentrated. He is abdomen then prepped and draped in the usual sterile fashion. We paused for a surgical timeout using both pre-incision safety checklist to verify correct patient, procedure site and additional clinical information prior to beginning the procedure Initial entry to the abdomen obtained through a right upper quadrant approach. A Veress needle inserted in a controlled fashion. Proper placement confirmed with saline drop technique. CO2 insufflation started to pressure 15 millimeters of mercury. Using the same incision a 5 mm port is placed under direct vision of the laparoscope. Initial findings on laparoscopy includes greenish murky fluid basing the small bowel with some reactive erythema of the small bowel, a small amount of exudates on the wall of the small bowel. The colon over the descending part looks distended but overall healthy. The omentum is draped on top of the sigmoid colon. A few loops of bowel are adhered to the lower abdominal wall from inflammatory adhesions. He was placed on a steep Trendelenburg position tilted toward the right side. I established my port. I placed a 5 mm infraumbilical port, a 5 mm left lower quadrant port and a 5 mm suprapubic port and later on another 5 mg left upper quadrant port for my paraprofessional education assistant. Later on I upsized my umbilical port to a 12 mm port as well as my right lower quadrant port to a 12 mm port to accommodate a stapler. I obtain some peritoneal fluid for cultures. The small bowel is displaced from the pelvis into the right upper quadrant. Visible bolus of this murky fluid and exudate were suctioned off. I initially freed off the lateral attachments of the sigmoid colon to get to the lateral pelvic sidewall where there were visible fluid collections on CT. A more concentrated almost feculent fluid was liberated at the left pelvic sidewall. Looking at the sigmoid colon distally, the daniel appear thickened acutely including the epiploic appendages. Site of perforation is noted at the distal sigmoid colon. The inflammation seems to ext end just at the junction of the sigmoid colon and rectum. The upper sigmoid colon and descending colon appears free from inflammation. The sigmoid colon mesentery is acutely inflamed, edematous but does not seem to the chronically thickened and shortened. After freeing up the lateral attachments of the sigmoid colon enough for me to elevate the sigmoid colon to the anterior abdo teto wall. I then left the medial peritoneum down to the healthy portion of the rectum. I stay close to the posterior wall of the sigmoid colon and rectum and developed a posterior window medial to lateral to avoid injury to the ureter. Once an adequate posterior window at the level of the upper rectum was created. This was divided with 2 firings of an [place] 60 mm stapler with a green load. Once the end sigmoid colon was divided I went through at the level of the mid mesentery proceeding proximally and dividing the sigmoid colon mesentery. I proceeded freeing up the lateral attachments of the descending colon up to the level of the splenic flexure. The superior hemorrhoidal artery was divided with a LigaSure device. The medial peritoneum to the descending colon was opened up. The IMV was divided at the level of the ligament of Treitz below the insertion to the tail of the pancreas. I proceeded connecting the medial and lateral dissection to the splenic flexure. Splenic flexure was partially freed up off the posterior attachments. I evaluated the length of the colon to a healthy area of the junction of the descending and sigmoid colon this appears to come down to the deep pelvis without any tension. The pneumoperitoneum was then temporarily released. I created a Pfannenstiel incision from extraction point at the suprapubic area where my suprapubic port was located. The anterior fascia was opened up vertically to about 4 cm. The peritoneum was opened up on the direct vision and an Terry wound retractor was placed. The sigmoid colon was then delivered through to the opening. The proximal point of division was chosen where the ascending colon appears soft and pliable without much leftover diverticulosis. The remaining mesentery is divided with the LigaSure device and this was opened up sharply with cautery while controlling for drainage. The colon itself has a small amount of liquid stool and not much solid stool. The opening was lysed up and this seems to be able to accommodate a 29 mm stapler thus this was chosen. The anvil was placed into the opening and cinched with a 2-0 Prolene placed in a pursestring fashion. The epiploic appendage that may fall into the staple line was released and divided. I placed in a separate 2-0 Prolene to further stanch the edge of the colon stump to the shaft of the anvil. This was placed back into the abdomen. The wound retractor removed. We changed gloves. The extraction site was closed in 2 layers using 0 Vicryl at the peritoneum/posterior sheath and #1 strata fix to close the anterior sheath in a continuous fashion delving back over to secure the closure. We resumed pneumoperitoneum. The pelvis was thoroughly irrigated with the exudates on the wall of the pelvis debrided and suctioned off. The stump was evaluated noted to be healthy. Again the end of the descending colon was brought back to the pelvis. I came down to the rectum and irrigated the rectum with diluted Betadine solution. The EEA sizers was introduced initially to measure for length. The shaft of the stapler was introduced transrectally and the spike brought out at the right side of the staple line. I scrubbed back and while my paraprofessional education assistant took my position at the bottom of the bed. The shaft and the anvil was assembled. The course of the descending colon checked to make sure there is no kink. The stapler was engaged and fired. The donuts were inspected in both ends noted to be supple and intact. The anastomosis was tested under water with a proctosigmoidoscope and no leak was noted. I proceeded with irrigating the pelvis 1 more time. I threaded a 19 Mario drain near the posterior edge of the anastomosis coming off through the right lower quadrant port. Patient was repositioned supine and we thoroughly irrigated the rest of the abdomen looking for purulent collections or possible soft the inflammatory fluid earlier noted especially perihepatic bleeding around the spleen area. The whole abdomen was inspected for injury or bleeding. The omentum was placed draped back on top of the bowels. The umbilical port site fascial defect was closed with a Gelacio-Barbara using 0 Vicryl. The abdomen was then deflated all ports were removed. The extraction site was irrigated and closed with chadd as well as the rest of the port sites. The drain was secured to the skin and the drain connected to a EDWIN bulb. Postop dressings placed on top of the incisions. Patient remained hemodynamically stable throughout the procedure. He continued to make concentrated urine. He was promptly awakened, extubated and brought to recovery room in stable condition. REX SAMANIEGO MD Aug 15, 2021 18:12
[2021-08-15] MEDS ORDERED: LR 1,000 ML IV SCH (18:20)
[2021-08-15] MEDS ORDERED: ONDANSETRON 4MG/2ML VIAL IV PRN (18:20)
[2021-08-15] MEDS ORDERED: fentaNYL 100 MCG/2 ML INJECTION (J3010) IV PRN (18:20)
[2021-08-15] MEDS ORDERED: HYDROMORPHONE HCL 0.5 MG/ 0.5 ML SYRINGE (J1170 PER 1) IV PRN (18:20)
[2021-08-15] MEDS ORDERED: MEPERIDINE INJ 25 MG/ML VIAL (J2175) IV PRN (18:20)
[2021-08-15] MEDS: KETOROLAC 30 MG/ML 1ML VIAL IV SCH (23:40)
[2021-08-16 00:40] VITALS: BP 105/55
[2021-08-16] MEDS: PERCOCET 5MG/325MG TAB PO PRN ×4 (02:01→21:00)
[2021-08-16] MEDS: PIPERACILLIN/TAZOBACTAM SOD 3.375 GM in D5W MINI-BAG PLUS 50 ML IV SCH ×4 (02:43→21:00)
[2021-08-16 04:00] VITALS: BP 133/70
[2021-08-16] MEDS: NS 1,000 ML IV SCH ×2 (04:41→12:21)
[2021-08-16] MEDS: KETOROLAC 30 MG/ML 1ML VIAL IV SCH ×3 (05:28→17:41)
[2021-08-16 06:23] LABS: BASO % 0.1 % (0.0-1.0); HEMATOCRIT 33.3 % (42.0-52.0); HEMOGLOBIN 11.1 g/dl (13.5-17.5); LYMPH # 0.4 10^3/uL (1.5-5.0); LYMPH % 4.3 % (24.0-44.0); MEAN CORPUSCULAR HEMOGLOBIN 30.2 pg (27.0-33.0); MEAN CORPUSCULAR HGB CONC 33.3 g/dl (32.0-36.5); MEAN CORPUSCULAR VOLUME 90.7 fl (80.0-96.0); MONO # 0.8 10^3/uL (0.0-0.8); MONO % 7.5 % (2.0-8.0); NEUTROPHILS # 8.9 10^3/uL (1.5-8.5); NEUTROPHILS % 87.6 % (36.0-66.0); PLATELET COUNT, AUTOMATED 241 10^3/uL (150-450); RED BLOOD COUNT 3.67 10^6/uL (4.30-6.10); WHITE BLOOD COUNT 10.1 10^3/uL (4.0-10.0)
[2021-08-16 06:54] LABS: ALBUMIN 2.2 GM/DL (3.2-5.2); ALT/SGPT 29 U/L (12-78); BILIRUBIN,TOTAL 0.8 MG/DL (0.2-1.0); BLOOD UREA NITROGEN 12 MG/DL (7-18); CALCIUM LEVEL 7.6 MG/DL (8.5-10.1); CARBON DIOXIDE LEVEL 26 MEQ/L (21-32); CHLORIDE LEVEL 106 MEQ/L (98-107); GLOMERULAR FILTRATION RATE > 60.0 (>60); GLUCOSE, FASTING 110 MG/DL (70-100); MAGNESIUM LEVEL 2.1 MG/DL (1.8-2.4); POTASSIUM SERUM 4.1 MEQ/L (3.5-5.1); SODIUM LEVEL 138 MEQ/L (136-145); TOTAL PROTEIN 5.5 GM/DL (6.4-8.2)
[2021-08-16 08:00] VITALS: BP_SYST 126; BP_SYST 130; BP_DIAS 59; BP_DIAS 60
[2021-08-16] MEDS: ENOXAPARIN 40MG/0.4ML SYRINGE (J1650 PER 10MG) SC SCH (08:26)
[2021-08-16] MEDS ORDERED: ALBUTEROL SULFATE 2.5 MG/0.5 ML INH NEB SOLN INH PRN (09:50)
--- NOTE | 2021-08-16 09:52 | IPNPDOC ---
Text Note Date of Service The patient was seen on 08/16/21. NOTE Subjective: Patient is a 31-year-old male with a PMHx of Diverticulitis who presented to the ER on 08/14 with worsening abdominal pain that started the day prior. Upon arrival, patient had imaging via CT scan of his abdomen that revealed sigmoiditis. General surgery was contacted initially with recommended admission to hospital service for medical management. Patient was admitted to the hospital service for further evaluation and treatment. On 08/15, patient began to experience worsening abdominal pain and repeat imaging was acquired that suggested contained perforation. Patient was transferred to the PCU. General surgery was called on consultation and patient was urgently taken to the or for surgical intervention. Patient has had resection of his sigmoid colon with end-to-end anastomosis. Patient was seen and examined at the bedside. Patient denies any nausea, vomiting. Denies any chest pain, shortness breath, palpitations. Reports that h is abdomen is feeling better but still has some pain. Patient has not been able to pass any gas and has not had any bowel movements. He has a Onofre catheter in place. Objective: Vitals (See below) General: Lying in bed, appears comfortable, AAOx3 HEENT: NC, AT CVS: RRR, +S1S2 Lungs: Fair air entry b/l, no wheezing, rales or rhonchi Abdomen: Soft, ND, tenderness appreciated. Suprapubic and left lower quadrant, + EDWIN drain at RLQ Extremities: No edema Imaging: CT abdomen pelvis 08/14/2021 Findings most compatible with enterocolitis/sigmoiditis CT abdomen pelvis 08/15/2021: 1. Previously identified enterocolitis/sigmoiditis now demonstrates contained perforation in the pelvis adjacent to the mid sigmoid colon with small foci of gas/fluid. No evidence for bowel obstruction and no further free air within the peritoneal cavity is identified. Assessment and plan: Abdominal pain - likely 2/2 Diverticulitis / Sigmoiditis; now complicated with contained perforation; s/p Sigmoidectomy and anastomosis (POD#1) - Currently patient reports that he feels relatively well - He remains stable and afebrile - Leukocytosis is improving; Will trend CRP - Imaging noted above - Laparoscopic sigmoid colectomy with end to and procto-colic anastomosis on 08/[address] Samaniego - c/w IV fluid hydration - c/w Zosyn for intra-abdominal coverage (Day #3) - Diet will be advanced per Surgery - Surgery on consultation; appreciate their input Reported hematuria - Patient is a Onofre catheter in place - Urine appears clear without any evidence of blood - Urine analysis, remains pending Asthma - No evidence of exacerbation - Will start PRN inhaled therapy ADHD - Home medications on hold DVT prophylaxis - c/w Lovenox Disposition: - Pending clinical improvement VS,Fishbone, I+O VS, Fishbone, I+O Laboratory Tests 08/16/21 05:38 Vital Signs Date Time Temp Pulse Resp B/P (MAP) Pulse Ox O2 Delivery O2 Flow Rate FiO2 08/16/21 09:11 18 08/16/21 08:00 97.4 65 130/59 (82) 100 Room Air 08/16/21 04:00 2.0 I&O- Last 24 Hours up to 6 AM 08/16/21 06:00 Intake Total 3600 ml Output Total 830 ml Balance 2770 ml ERIKA SERNA MD Aug 16, 2021 09:52
[2021-08-16 12:00] VITALS: BP 124/61
[2021-08-16] MEDS: ALVIMOPAN 12 MG CAPSULE (ENTEREG) PO SCH ×2 (14:44→20:59)
[2021-08-16 18:00] VITALS: BP 118/63
--- NOTE | 2021-08-16 20:00 | IPNPDOC ---
Text Note Date of Service The patient was seen on 08/16/21. NOTE Patient seen this morning. Reports abdominal pain is much better. He underwent laparoscopic sigmoid colectomy yesterday. Hemodynamically stable, afebrile postop VS reviewed Patient looks more comfortable skin cool and moist lungs clear to auscultation bilaterally regular heart rate and rhythm Abdomen is minimally distended, soft, hypoactive bowel sounds. Port site dressing secure around the drain area clean dry and intact. Mild staining around the dressings around the drain site. Drainage is light pink serosanguineous. Mild tenderness around the Pfannenstiel extraction site. No significant extremity edema Impression and plan Perforated sigmoid diverticulitis Postop day 1 laparoscopic sigmoid colectomy Overall he looks to be doing well, not showing much signs of severe systemic inflammatory response. Urine still concentrated but better output. DC Onofre catheter Incentive spirometer and encourage deep breathing exercises Clear liquids Patient is instructed to ambulate in the hallways Lovenox for DVT prophylaxis Continue with IV antibiotics VS,Fishbone, I+O VS, Fishbone, I+O Laboratory Tests 08/16/21 05:38 Vital Signs Date Time Temp Pulse Resp B/P (MAP) Pulse Ox O2 Delivery O2 Flow Rate FiO2 08/16/21 18:00 98.5 73 16 118/63 (81) 96 08/16/21 12:00 Room Air 08/16/21 04:00 2.0 l I&O- Last 24 Hours up to 6 AM 08/16/21 06:00 Intake Total 3600 ml Output Total 830 ml Balance 2770 ml ESDRAS LEMA MD Aug 16, 2021 20:00
[2021-08-16] MEDS ORDERED: RAMELTEON 8 MG TAB (ROZEREM) PO PRN (21:15)
[2021-08-16 21:29] VITALS: BP 126/65
[2021-08-17] MEDS: KETOROLAC 30 MG/ML 1ML VIAL IV SCH ×5 (00:42→23:32)
[2021-08-17] MEDS: PIPERACILLIN/TAZOBACTAM SOD 3.375 GM in D5W MINI-BAG PLUS 50 ML IV SCH ×4 (02:58→20:56)
[2021-08-17] MEDS: PERCOCET 5MG/325MG TAB PO PRN ×3 (02:58→15:20)
[2021-08-17 06:00] VITALS: BP 138/76
[2021-08-17 09:08] LABS: BASO % 0.2 % (0.0-1.0); EOS # 0.1 10^3/uL (0.0-0.5); EOS % 0.6 % (0.0-3.0); HEMATOCRIT 37.2 % (42.0-52.0); HEMOGLOBIN 12.1 g/dl (13.5-17.5); LYMPH # 1.1 10^3/uL (1.5-5.0); MEAN CORPUSCULAR HGB CONC 32.5 g/dl (32.0-36.5); MEAN CORPUSCULAR VOLUME 92.3 fl (80.0-96.0); MONO # 0.9 10^3/uL (0.0-0.8); MONO % 9.1 % (2.0-8.0); NEUTROPHILS # 7.9 10^3/uL (1.5-8.5); NEUTROPHILS % 78.6 % (36.0-66.0); PLATELET COUNT, AUTOMATED 350 10^3/uL (150-450); RED BLOOD COUNT 4.03 10^6/uL (4.30-6.10); WHITE BLOOD COUNT 10.1 10^3/uL (4.0-10.0)
[2021-08-17] MEDS: ALVIMOPAN 12 MG CAPSULE (ENTEREG) PO SCH ×2 (09:12→20:55)
[2021-08-17] MEDS: ENOXAPARIN 40MG/0.4ML SYRINGE (J1650 PER 10MG) SC SCH (09:12)
[2021-08-17 09:26] LABS: ALBUMIN 2.4 GM/DL (3.2-5.2); ALT/SGPT 31 U/L (12-78); BILIRUBIN,TOTAL 0.5 MG/DL (0.2-1.0); BLOOD UREA NITROGEN 10 MG/DL (7-18); CALCIUM LEVEL 8.5 MG/DL (8.5-10.1); CARBON DIOXIDE LEVEL 28 MEQ/L (21-32); CHLORIDE LEVEL 107 MEQ/L (98-107); CREATININE FOR GFR 0.92 MG/DL (0.70-1.30); GLOMERULAR FILTRATION RATE > 60.0 (>60); GLUCOSE, FASTING 124 MG/DL (70-100); MAGNESIUM LEVEL 2.1 MG/DL (1.8-2.4); SODIUM LEVEL 140 MEQ/L (136-145); TOTAL PROTEIN 6.2 GM/DL (6.4-8.2)
[2021-08-17] MEDS ORDERED: NS 1,000 ML IV ONE (09:35)
--- NOTE | 2021-08-17 10:19 | IPNPDOC ---
Text Note Date of Service The patient was seen on 08/17/21. NOTE Subjective: Patient is a 31-year-old male with a PMHx of Diverticulitis who presented to the ER on 08/14 with worsening abdominal pain that started the day prior. Upon arrival, patient had imaging via CT scan of his abdomen that revealed sigmoiditis. General surgery was contacted initially with recommended admission to hospital service for medical management. Patient was admitted to the hospital service for further evaluation and treatment. On 08/15, patient began to experience worsening abdominal pain and repeat imaging was acquired that suggested contained perforation. General surgery was called on consultation and patient was urgently taken to the or for surgical intervention. Patient has had resection of his sigmoid colon with end-to-end anastomosis. Patient was seen and examined at the bedside. Patient reports that this evening was uneventful. Reports that his abdominal pain has had improvement. Denies any nausea and vomiting. Has had 2 bowel movements yesterday. Denies any chest pain, shortness breath or palpitations. EDWIN drain continues to have some output; has been drained 4 times since surgery. Objective: Vitals (See below) General: Patient is sitting up in bed, appears to be comfortable without any distress, is awake and alert HEENT: NC, AT CVS: +S1S2 Lungs: There appears to be fair air entry bilaterally without any auscultated crackles, wheezing or rhonchi Abdomen: Abdomen is soft, there is no distention, mild tenderness appreciated at lower quadrants bilaterally, EDWIN drain in the right lower quadrant Extremities: Lower extremities are without edema Imaging: CT abdomen pelvis 08/14/2021 Findings most compatible with enterocolitis/sigmoiditis CT abdomen pelvis 08/15/2021: 1. Previously identified enterocolitis/sigmoiditis now demonstrates contained perforation in the pelvis adjacent to the mid sigmoid colon with small foci of gas/fluid. No evidence for bowel obstruction and no further free air within the peritoneal cavity is identified. Assessment and plan: Abdominal pain - likely 2/2 Diverticulitis / Sigmoiditis; Complicated with contained perforation; s/p Sigmoidectomy and anastomosis (POD#2) - Patient has had improvement of abdominal pain. Has been tolerating oral diet - Afebrile and hemodynamically stable - Leukocytosis is improving; CRP pending this morning - Imaging noted above - Laparoscopic sigmoid colectomy with end to and procto-colic anastomosis on 10/[address] Samaniego - s/p IV fluid hydration - c/w Zosyn for intra-abdominal coverage (Day #4) - Surgery on consultation; appreciate their input - diet will be advanced s/p Hematuria - s/p Onfore catheter in place Chronic Asthma - No evidence of exacerbation - c/w inhaled therapy as ordered ADHD - Home medications on hold DVT prophylaxis - c/w Lovenox Disposition: - Pending clinical improvement VS,[place], I+O VS, [place], I+O Laboratory Tests 08/17/21 08:49 Vital Signs Date Time Temp Pulse Resp B/P (MAP) Pulse Ox O2 Delivery O2 Flow Rate FiO2 08/17/21 06:00 98.1 69 20 138/76 (96) 96 Room Air 08/16/21 04:00 2.0 I&O- Last 24 Hours up to 6 AM 08/17/21 05:59 Intake Total 2365 ml Output Total 1005 ml Balance 1360 ml ERIKA SERNA MD Aug 17, 2021 10:19
--- NOTE | 2021-08-17 13:24 | IPNPDOC ---
Text Note Date of Service The patient was seen on 08/17/21. NOTE Patient reports more abdominal discomfort with coughing, otherwise denies any nausea, vomiting, severe bloating. He has had 2 documented bowel movements yesterday. He has been afebrile postop. He tells me he has gotten up and walk around the room but has not ambulated outside of the room yet. Reports some discomfort with urinating. Past 24-hour vital signs reviewed. He is afebrile. Nontachycardic Examination Laying flat on bed, seems to be mildly more uncomfortable in appearance than he was yesterday Skin is warm and moist No jugular venous distention Lungs slight decreased sounds posteriorly bilaterally, no wheezes, clear mid and upper anteriorly Regular heart rate and rhythm Abdomen soft, minimally distended. Port site and drain dressings are clean dry and intact. Drainage from the EDWIN drain is fairly serous in appearance now. 155 mL drained yesterday. Mild tenderness around the Pfannenstiel extraction site. Less tenderness over the left lower quadrant area No significant extremity edema Laboratories WBC 10.1 CRP 13 down from 23.1 Impression and plan Perforated sigmoid diverticulitis Postop day 2 laparoscopic sigmoid colectomy with anastomosis I think he is doing well. Not showing any signs of severe systemic inflammatory response. He is having bowel function now including flatus and bowel movements. I ask him whether he wants to progress his diet. He is a bit apprehensive. I will advance her to full liquids for now. I have ordered incentive spirometer as instructed him to do deep breathing exercises every hour. Overall pain control seems to be adequate he has been relying mainly on the schedule Toradol. I told him to take some Percocet and walk the hallways today. Intraperitoneal fluid cultures show no growth so far. Continue with IV Zosyn. Follow the CRP. DVT prophylaxis Lovenox VS,Fishbone, I+O VS, Fishbone, I+O Laboratory Tests 08/17/21 08:49 Vital Signs Date Time Temp Pulse Resp B/P (MAP) Pulse Ox O2 Delivery O2 Flow Rate FiO2 08/17/21 10:58 18 08/17/21 10:28 Room Air 08/17/21 06:00 98.1 69 138/76 (96) 96 08/16/21 04:00 2.0 I&O- Last 24 Hours up to 6 AM 08/17/21 06:00 Intake Total 2325 ml Output Total 765 ml Balance 1560 ml ESDRAS LEMA MD Aug 17, 2021 13:24
[2021-08-17 14:00] VITALS: BP 133/67
[2021-08-17] MEDS: ONDANSETRON 4MG/2ML VIAL IV PRN (20:55)
[2021-08-17] MEDS: ACETAMINOPHEN TAB 650MG DOSE (2X325MG) PO PRN (20:55)
[2021-08-17 22:00] VITALS: BP 113/67
[2021-08-18] MEDS: ACETAMINOPHEN TAB 650MG DOSE (2X325MG) PO PRN ×3 (02:38→21:10)
[2021-08-18] MEDS: PIPERACILLIN/TAZOBACTAM SOD 3.375 GM in D5W MINI-BAG PLUS 50 ML IV SCH ×3 (02:38→15:10)
[2021-08-18] MEDS: KETOROLAC 30 MG/ML 1ML VIAL IV SCH ×3 (05:13→18:12)
[2021-08-18 06:00] VITALS: BP 97/46
[2021-08-18] MEDS: ALVIMOPAN 12 MG CAPSULE (ENTEREG) PO SCH ×2 (08:36→21:10)
[2021-08-18] MEDS: ENOXAPARIN 40MG/0.4ML SYRINGE (J1650 PER 10MG) SC SCH (08:36)
[2021-08-18 11:10] LABS: BASO % 0.3 % (0.0-1.0); EOS # 0.1 10^3/uL (0.0-0.5); EOS % 0.6 % (0.0-3.0); HEMATOCRIT 33.6 % (42.0-52.0); HEMOGLOBIN 11.1 g/dl (13.5-17.5); LYMPH # 1.3 10^3/uL (1.5-5.0); LYMPH % 13.8 % (24.0-44.0); MEAN CORPUSCULAR HEMOGLOBIN 29.8 pg (27.0-33.0); MEAN CORPUSCULAR VOLUME 90.3 fl (80.0-96.0); NEUTROPHILS # 6.9 10^3/uL (1.5-8.5); NEUTROPHILS % 73.5 % (36.0-66.0); PLATELET COUNT, AUTOMATED 320 10^3/uL (150-450); RED BLOOD COUNT 3.72 10^6/uL (4.30-6.10); WHITE BLOOD COUNT 9.4 10^3/uL (4.0-10.0)
--- NOTE | 2021-08-18 11:19 | IPNPDOC ---
Text Note Date of Service The patient was seen on 08/18/21. NOTE Subjective: Patient is a 31-year-old male with a PMHx of Diverticulitis who presented to the ER on 08/14 with worsening abdominal pain that started the day prior. Upon arrival, patient had imaging via CT scan of his abdomen that revealed sigmoiditis. General surgery was contacted initially with recommended admission to hospital service for medical management. Patient was admitted to the hospital service for further evaluation and treatment. On 08/15, patient began to experience worsening abdominal pain and repeat imaging was acquired that suggested contained perforation. General surgery was called on consultation and patient was urgently taken to the or for surgical intervention. Patient has had resection of his sigmoid colon with end-to-end anastomosis. Patient was seen and examined at the bedside. Currently, he denies any chest pain, short of breath or palpitations. Reports a mild cough. Denies any nausea or vomiting. Reports some abdominal discomfort, however, improved compared to admission. Reports that he's been having regular bowel movements. Denies any urinary discomfort. Objective: Vitals (See below) General: Ambulating in the room without any difficulty, appears comfortable, not in any acute distress, awake, alert, oriented 3 HEENT: Normocephalic and atraumatic CVS: +S1S2 Lungs: Air entry appears to be fair bilaterally without auscultated wheezing, crackles or rhonchi Abdomen: Soft without distention, mild tenderness at supra-pubic area, right lower quadrant with EDWIN drain present - minimal drainage Extremities: No edema Imaging: CT abdomen pelvis 08/14/2021 Findings most compatible with enterocolitis/sigmoiditis CT abdomen pelvis 08/15/2021: 1. Previously identified enterocolitis/sigmoiditis now demonstrates contained perforation in the pelvis adjacent to the mid sigmoid colon with small foci of gas/fluid. No evidence for bowel obstruction and no further free air within the peritoneal cavity is identified. Assessment and plan: Abdominal pain - likely 2/2 Diverticulitis / Sigmoiditis; Complicated with contained perforation; s/p Sigmoidectomy and anastomosis (POD#3) - Abdominal pain. Has been subsiding has been tolerating oral intake and has been having bowel movements - Hemodynamically stable / Afebrile - s/p Leukocytosis / CRP has been trending down (pending this morning) - Imaging noted above - Laparoscopic sigmoid colectomy with end to and procto-colic anastomosis on 08/[address] Samaniego - s/p IV fluid hydration - c/w Zosyn for intra-abdominal coverage (Day #5); anticipate transition to oral antibiotics today - Surgery on consultation; appreciate their input s/p Hematuria - s/p Onofre catheter in place Chronic Asthma - No evidence of exacerbation - c/w inhaled therapy as ordered ADHD - Home medications on hold DVT prophylaxis - c/w Lovenox Disposition: - Pending clinical improvement VSRhona, I+O VSRhona I+O Laboratory Tests 08/18/21 10:51 Vital Signs Date Time Temp Pulse Resp B/P (MAP) Pulse Ox O2 Delivery O2 Flow Rate FiO2 08/18/21 06:00 98.5 62 18 97/46 (63) 97 Room Air 08/16/21 04:00 2.0 I&O- Last 24 Hours up to 6 AM 08/18/21 05:59 Intake Total 3330 ml Output Total 40 ml Balance 3290 ml ERIKA SERNA MD Aug 18, 2021 11:19
[2021-08-18 11:44] LABS: ALBUMIN 2.3 GM/DL (3.2-5.2); ALT/SGPT 40 U/L (12-78); BILIRUBIN,TOTAL 0.5 MG/DL (0.2-1.0); BLOOD UREA NITROGEN 6 MG/DL (7-18); C REACTIVE PROTEIN QUANTITATIV 6.89 MG/DL (0.00-0.30); CALCIUM LEVEL 8.7 MG/DL (8.5-10.1); CARBON DIOXIDE LEVEL 29 MEQ/L (21-32); CHLORIDE LEVEL 106 MEQ/L (98-107); GLOMERULAR FILTRATION RATE > 60.0 (>60); GLUCOSE, FASTING 122 MG/DL (70-100); MAGNESIUM LEVEL 1.8 MG/DL (1.8-2.4); POTASSIUM SERUM 3.5 MEQ/L (3.5-5.1); SODIUM LEVEL 137 MEQ/L (136-145); TOTAL PROTEIN 5.7 GM/DL (6.4-8.2)
[2021-08-18] MEDS: ONDANSETRON 4MG/2ML VIAL IV PRN (12:19)
[2021-08-18 14:00] VITALS: BP 123/68
[2021-08-18] MEDS: metroNIDAZOLE (FLAGYL) 500MG TABLET PO SCH ×2 (15:40→21:10)
[2021-08-18] MEDS: CEFDINIR 300 MG CAP (OMNICEF) PO SCH (21:10)
[2021-08-18 22:00] VITALS: BP 135/80
[2021-08-19] MEDS: KETOROLAC 30 MG/ML 1ML VIAL IV SCH ×3 (00:14→11:34)
[2021-08-19] MEDS: metroNIDAZOLE (FLAGYL) 500MG TABLET PO SCH (05:15)
[2021-08-19 06:00] VITALS: BP 134/78
[2021-08-19] MEDS: ONDANSETRON 4MG/2ML VIAL IV PRN (08:31)
[2021-08-19] MEDS: CEFDINIR 300 MG CAP (OMNICEF) PO SCH (08:31)
[2021-08-19] MEDS: ALVIMOPAN 12 MG CAPSULE (ENTEREG) PO SCH (08:31)
[2021-08-19] MEDS: PERCOCET 5MG/325MG TAB PO PRN ×2 (08:31→12:58)
[2021-08-19] MEDS: ENOXAPARIN 40MG/0.4ML SYRINGE (J1650 PER 10MG) SC SCH (08:32)
[2021-08-19 08:44] LABS: BASO % 0.4 % (0.0-1.0); EOS # 0.1 10^3/uL (0.0-0.5); EOS % 1.2 % (0.0-3.0); HEMATOCRIT 34.8 % (42.0-52.0); HEMOGLOBIN 11.6 g/dl (13.5-17.5); LYMPH # 1.7 10^3/uL (1.5-5.0); MEAN CORPUSCULAR HEMOGLOBIN 29.6 pg (27.0-33.0); MEAN CORPUSCULAR HGB CONC 33.3 g/dl (32.0-36.5); MEAN CORPUSCULAR VOLUME 88.8 fl (80.0-96.0); MONO # 0.8 10^3/uL (0.0-0.8); MONO % 8.7 % (2.0-8.0); NEUTROPHILS # 6.7 10^3/uL (1.5-8.5); NEUTROPHILS % 70.4 % (36.0-66.0); PLATELET COUNT, AUTOMATED 377 10^3/uL (150-450); RED BLOOD COUNT 3.92 10^6/uL (4.30-6.10); WHITE BLOOD COUNT 9.5 10^3/uL (4.0-10.0)
--- NOTE | 2021-08-19 09:03 | IPNPDOC ---
Text Note Date of Service The patient was seen on 08/19/21. NOTE General surgery. Dr. Samaniego The patient is a 31-year-old male with history of perforated diverticulitis, status post laparoscopic sigmoid colectomy with anastomosis as per Dr. Samaniego 08/15/2021. The patient is resting in bed. States he has had some pain around incision sites. Reports bowel movement this morning. States his appetite is not very good, has not eaten breakfast yet. Afebrile. VSS MMM Lungs are clear to auscultation S1-S2 regular rate rhythm Abdomen is soft, nondistended. Surgical sites are clean/dry/intact. No edema WBC 9.5. CMP/CRP is pending. Assessment/plan Perforated sigmoid diverticulitis/status post laparoscopic sigmoid colectomy with anastomosis 08/15/[address] Samaniego. The patient is reviewed as per Dr. Samaniego. Tolerating low residue diet. States he has been up out of bed ambulating. Pain has been reasonably controlled. Currently on Omnicef/Flagyl. CRP/CMP pending. DVT prophylaxis. Lovenox VS,Fishbone, I+O VS, Fishbone, I+O Laboratory Tests 08/18/21 10:51 08/19/21 08:02 Vital Signs Date Time Temp Pulse Resp B/P (MAP) Pulse Ox O2 Delivery O2 Flow Rate FiO2 08/19/21 08:31 16 08/19/21 06:00 98.3 51 134/78 (96) 98 Room Air 08/16/21 04:00 2.0 I&O- Last 24 Hours up to 6 AM 08/19/21 06:00 Intake Total 1470 ml Balance 1470 ml Lexis Sim Aug 19, 2021 09:03
[2021-08-19 09:13] LABS: ALBUMIN 2.3 GM/DL (3.2-5.2); ALT/SGPT 67 U/L (12-78); BILIRUBIN,TOTAL 0.3 MG/DL (0.2-1.0); BLOOD UREA NITROGEN 5 MG/DL (7-18); C REACTIVE PROTEIN QUANTITATIV 4.48 MG/DL (0.00-0.30); CALCIUM LEVEL 8.8 MG/DL (8.5-10.1); CARBON DIOXIDE LEVEL 28 MEQ/L (21-32); CHLORIDE LEVEL 106 MEQ/L (98-107); GLOMERULAR FILTRATION RATE > 60.0 (>60); GLUCOSE, FASTING 101 MG/DL (70-100); MAGNESIUM LEVEL 1.8 MG/DL (1.8-2.4); POTASSIUM SERUM 3.9 MEQ/L (3.5-5.1); SODIUM LEVEL 139 MEQ/L (136-145)
--- NOTE | 2021-08-19 10:27 | DS.PDOC ---
Discharge Summary General Date of Admission Aug 14, 2021 at 16:47 Date of Discharge 08/19/21 Discharge Summary PROCEDURES PERFORMED DURING STAY: [None]. ADMITTING DIAGNOSES: 1. . DISCHARGE DIAGNOSES: 1. . COMPLICATIONS/CHIEF COMPLAINT: Diverticulitis, Sigmoiditis. HISTORY OF PRESENT ILLNESS: . HOSPITAL COURSE: . DISCHARGE MEDICATIONS: Please see below. ALLERGIES: Please see below. PHYSICAL EXAMINATION ON DISCHARGE: VITAL SIGNS: Please see below. GENERAL: HEENT: NECK: CARDIOVASCULAR EXAMINATION: RESPIRATORY EXAMINATION: ABDOMINAL EXAMINATION: EXTREMITIES: SKIN: NEUROLOGICAL EXAMINATION: PSYCHIATRIC EXAMINATION: LABORATORY DATA: Please see below. IMAGING: PROGNOSIS: ACTIVITY: [As tolerated]. DIET: DISCHARGE PLAN: DISPOSITION: . DISCHARGE INSTRUCTIONS: 1. . ITEMS TO FOLLOWUP ON ON OUTPATIENT: 1. . DISCHARGE CONDITION: [Stable]. TIME SPENT ON DISCHARGE: minutes. Vital Signs/I&Os Vital Signs Date Time Temp Pulse Resp B/P (MAP) Pulse Ox O2 Delivery O2 Flow Rate FiO2 08/19/21 09:22 16 08/19/21 06:00 98.3 51 134/78 (96) 98 Room Air 08/16/21 04:00 2.0 I&O- Last 24 Hours up to 6 AM 08/19/21 06:00 Intake Total 1470 ml Balance 1470 ml Laboratory Data Labs 24H Laboratory Tests 2 08/18/21 10:51: Immature Granulocyte % (Auto) 0.8, Neutrophils (%) (Auto) 73.5H, Lymphocytes (%) (Auto) 13.8L, Monocytes (%) (Auto) 11.0H, Eosinophils (%) (Auto) 0.6, Basophils (%) (Auto) 0.3, Neutrophils # (Auto) 6.9, Lymphocytes # (Auto) 1.3L, Monocytes # (Auto) 1.0H, Eosinophils # (Auto) 0.1, Basophils # (Auto) 0.0, Nucleated Red Blood Cells % (auto) 0.0, Anion Gap 2L, Glomerular Filtration Rate > 60.0, Calcium Level 8.7, Magnesium Level 1.8, Total Bilirubin 0.5, Aspartate Amino Transf (AST/SGOT) 23, Alanine Aminotransferase (ALT/SGPT) 40, Alkaline Phosphatase 51, C-Reactive Protein, Quantitative 6.89H, Total Protein 5.7L, Albumin 2.3L, Albumin/Globulin Ratio 0.7 08/19/21 08:02: Immature Granulocyte % (Auto) 1.3, Neutrophils (%) (Auto) 70.4H, Lymphocytes (%) (Auto) 18.0L, Monocytes (%) (Auto) 8.7H, Eosinophils (%) (Auto) 1.2, Basophils (%) (Auto) 0.4, Neutrophils # (Auto) 6.7, Lymphocytes # (Auto) 1.7, Monocytes # (Auto) 0.8, Eosinophils # (Auto) 0.1, Basophils # (Auto) 0.0, Nucleated Red Blood Cells % (auto) 0.0, Anion Gap 5L, Glomerular Filtration Rate > 60.0, Calcium Level 8.8, Magnesium Level 1.8, Total Bilirubin 0.3, Aspartate Amino Transf (AST/SGOT) 43H, Alanine Aminotransferase (ALT/SGPT) 67, Alkaline Phosphatase 54, C-Reactive Protein, Quantitative 4.48H, Total Protein 6.0L, Albumin 2.3L, Albumin/Globulin Ratio 0.6 CBC/BMP Laboratory Tests 08/18/21 10:51 08/19/21 08:02 Microbiology Microbiology 08/15/21 Gram Stain - Final, Complete 08/15/21 Body Fluid Culture - Final, Complete Escherichia Coli 08/15/21 Anaerobic Culture - Final, Complete 08/15/21 Blood Culture - Preliminary, Resulted No Growth after 72 hours. All specime... 08/15/21 Blood Culture - Preliminary, Resulted No Growth after 72 hours. All specime... 08/14/21 Blood Culture - Preliminary, Resulted No Growth after 72 hours. All specime... 08/14/21 Blood Culture - Preliminary, Resulted No Growth after 72 hours. All specime... Discharge Medications Scheduled Dextroamphetamine/Amphetamine (Dextroamp-Amphet ER 20 mg Cap) 20 Mg Cap.er.24h, 20 MG PO BID, (Reported) TAKES MORNING AND AFTERNOON, SOMETIMES ONLY ONCE IN THE MORNING PER PT Scheduled PRN Sildenafil Citrate (Viagra) 50 Mg Tablet, 50 MG PO ASDIRECTED PRN for ERECTILE DYSFUNCTION, (Reported) 1 hour before sexual activity Allergies Coded Allergies: No Known Allergies (Unverified , 09/14/20) LYNN FULLER MD Aug 19, 2021 10:27
[2021-08-19] MEDS ORDERED: CEFD300CAP PO (10:29)
[2021-08-19] MEDS ORDERED: PERCOCET PO (10:29)
[2021-08-19] MEDS ORDERED: FLAG500T PO (10:29)
[2021-08-19] MEDS ORDERED: ACET1TAB55 PO (10:29)
[2021-08-19] MEDS ORDERED: ZOFR4TAB16 PO (10:29)
[2021-08-19] MEDS ORDERED: MIRA3350 PO (10:30)
== END 2021-08-19 13:25 | disposition home or self-care (01) | DRG 221 ==
LOC: M ED 14:35 → M ED INP 16:47 → ENRESERV 18:51 → M MS5PR 19:46 → M PCU 08-15 12:17 → M MS5PR 08-16 17:11
PROVIDERS: ADMIT Internal Medicine; ATTEND Family Medicine
PROC: 0DBN4ZZ Excision of Sigmoid Colon, Percutaneous Endoscopic Approach (ICD-10-PCS; principal; 2021-08-15 12:54)
DX: K57.21 Diverticulitis of large intestine with perforation and abscess with bleeding (principal); F17.210 Nicotine dependence, cigarettes, uncomplicated; J45.909 Unspecified asthma, uncomplicated; F90.9 Attention-deficit hyperactivity disorder, unspecified type

== ENCOUNTER → 2021-12-31 | Outpatient (CLI) | payer OTHER ==
[~2021-12-31] MED LIST changes: +ACET1TAB55 PO; +CEFD300CAP PO; +MIRA3350 PO; +PERCOCET PO; +SILD50TA PO; +ZOFR4TAB16 PO
== END ==
LOC: M RAD 12:45
PROVIDERS: ATTEND Physician Assistant
DX: M67.432 Ganglion, left wrist (principal)